=== PATIENT | male | born 1960 | race African-American/Black ===

== ENCOUNTER 2018-04-30 12:02 | Emergency (ER) | payer OTHER ==
[~2018-04-30] VITALS: Ht 185.4 cm; Wt 95.0 kg
[2018-04-30] MEDS ORDERED: HYDROCODONE/ACETAMINOPHEN 5/325MG TABLET PO STA (15:20)
[2018-04-30] MEDS ORDERED: TETRACAINE 0.5% OPHTH DROPS 4ML OP ONE (15:30)
[2018-04-30] MEDS ORDERED: FLUORESCEIN SODIUM 1MG/STRIP OP ONE (15:30)
[2018-04-30 15:57] LABS: EOSINOPHILS % 0.6 % (0.0-5.0); HEMATOCRIT. 46.1 % (42.0-52.0); LYMPHOCYTES % 27.8 % (20.0-50.0); MEAN CORPUSCULAR HEMOGLOBIN 31.8 pg (28.0-32.0); MEAN CORPUSCULAR VOLUME 91.4 fL (80.0-94.0); MEAN PLATELET VOLUME 10.3 fl (7.4-10.4); MONOCYTES % 7.3 % (2.0-8.0); NEUTROPHILS % 63.3 % (40.0-76.0); PLATELET 195 x1000/uL (130-400); RED BLOOD CELL COUNT 5.05 mill/uL (4.7-6.1); RED CELL DISTRIBUTION WIDTH 14.3 % (11.6-14.6)
[2018-04-30 16:02] LABS: CHLORIDE 102 mEq/L (98-107)
[2018-04-30 16:03] LABS: PROTHROMBIN TIME 9.6 sec (9.1-11.1)
[2018-04-30] MEDS ORDERED: VANCOMYCIN 500 MG PREMIX 100 ML IV SCH (17:30)
[2018-04-30] MEDS ORDERED: PIPERACILLIN/TAZ 3.375G PREMIX 50 ML IV ONE (17:30)
[2018-04-30 19:35] VITALS: BP 176/99
== END 2018-04-30 19:35 | disposition home or self-care (01) ==
LOC: ER 12:02
DX: H00.036 Abscess of eyelid left eye, unspecified eyelid (principal); H10.9 Unspecified conjunctivitis; E11.9 Type 2 diabetes mellitus without complications; I11.9 Hypertensive heart disease without heart failure
CPT/HCPCS: 36415; 70486; 80053; 85025; 85610; 96365; 96368; 99285; J2543; J3370

== ENCOUNTER 2021-06-15 22:50 | Inpatient (IN) | payer MEDICAID ==
[~2021-06-15] VITALS: Ht 185.4 cm; Wt 87.3 kg
[2021-06-15 23:00] VITALS: BP 140/73
[2021-06-16] MEDS ORDERED: ASPI-1497 PO (00:39)
[2021-06-16] MEDS ORDERED: HYDR-4009 PO (00:39)
[2021-06-16] MEDS ORDERED: GLIP10TA3 PO (00:39)
[2021-06-16] MEDS ORDERED: METF-414 PO (00:39)
[2021-06-16] MEDS ORDERED: AMLO10TA80 PO (00:39)
[2021-06-16] MEDS ORDERED: HYDR50TA PO (00:39)
[2021-06-16] MEDS ORDERED: CARI250T PO (00:39)
[2021-06-16] MEDS ORDERED: INFLUENZA VACCINE 05/PF 0.5 ML SYRINGE IM ONE (00:45)
[2021-06-16] MEDS ORDERED: IPRATROPIUM/ALBUTEROL 0.5-3(2.5)MG/3ML NEB HHN PRN (02:15)
[2021-06-16] MEDS ORDERED: DEXTROSE 50% WATER 50ML SYRINGE IV PRN (02:15)
[2021-06-16] MEDS ORDERED: NALOXONE HCL 0.4MG/ML VIAL IV PRN (05:30)
[2021-06-16] MEDS: BLOOD SUGAR DIAGNOSTIC STRIP TEST SCH ×4 (05:53→20:37)
[2021-06-16] MEDS: INSULIN LISPRO 100 UNITS/ML SUBCUT SCH ×4 (05:53→20:37)
[2021-06-16 07:06] LABS: BASOPHILS % 0.3 % (0.0-2.0); EOSINOPHILS % 1.2 % (0.0-5.0); HEMATOCRIT. 40.2 % (42.0-52.0); HEMOGLOBIN. 13.8 g/dL (14.0-18.0); LYMPHOCYTES % 33.6 % (20.0-50.0); MEAN CORPUSCULAR HEMOGLOBIN 31.3 pg (28.0-32.0); MEAN CORPUSCULAR VOLUME 91.4 fL (80.0-94.0); MONOCYTES % 8.6 % (2.0-8.0); NEUTROPHILS % 56.3 % (40.0-76.0); PLATELET 173 x1000/uL (130-400)
[2021-06-16 07:07] LABS: CHLORIDE 105 mEq/L (98-107)
[2021-06-16] MEDS: HYDROCHLOROTHIAZIDE 25MG TABLET PO SCH (07:59)
[2021-06-16] MEDS: ASPIRIN 81MG TABLET PO SCH (07:59)
[2021-06-16] MEDS: AMLODIPINE 10MG TABLET PO SCH (07:59)
[2021-06-16] MEDS: HYDROCODONE/ACETAMINOPHEN 10/325MG TABLET PO PRN (08:00)
[2021-06-16 08:30] VITALS: BP 126/52
[2021-06-16] MEDS: ENOXAPARIN 40MG/0.4ML SYR SUBCUT SCH (12:52)
[2021-06-16] MEDS: METFORMIN HCL 500MG TABLET PO SCH ×2 (12:53→17:25)
[2021-06-16 19:10] VITALS: BP 128/73
[2021-06-16 19:56] LABS: T4 FREE 0.97 ng/dL (0.76-1.46)
[2021-06-16] MEDS: ATORVASTATIN CALCIUM 40MG TABLET PO SCH (20:37)
[2021-06-16] MEDS: CHLORPROMAZINE HCL 25 MG TABLET PO PRN (20:37)
[2021-06-16] MEDS ORDERED: PROMETHAZINE HCL 25MG TABLET PO PRN (21:15)
[2021-06-17] MEDS: BLOOD SUGAR DIAGNOSTIC STRIP TEST SCH ×4 (06:05→20:33)
[2021-06-17 06:08] LABS: BASOPHILS % 0.5 % (0.0-2.0); EOSINOPHILS % 1.9 % (0.0-5.0); HEMATOCRIT. 39.4 % (42.0-52.0); HEMOGLOBIN. 13.2 g/dL (14.0-18.0); LYMPHOCYTES % 43.9 % (20.0-50.0); MEAN CORPUSCULAR HEMOGLOBIN 30.8 pg (28.0-32.0); MEAN CORPUSCULAR VOLUME 92.1 fL (80.0-94.0); MEAN PLATELET VOLUME 10.7 fl (7.4-10.4); MONOCYTES % 10.1 % (2.0-8.0); NEUTROPHILS % 43.6 % (40.0-76.0); PLATELET 166 x1000/uL (130-400); RED BLOOD CELL COUNT 4.28 mill/uL (4.7-6.1); RED CELL DISTRIBUTION WIDTH 12.9 % (11.6-14.6)
[2021-06-17 06:13] LABS: CHLORIDE 101 mEq/L (98-107)
[2021-06-17] MEDS: INSULIN LISPRO 100 UNITS/ML SUBCUT SCH ×4 (06:29→21:31)
[2021-06-17 06:30] LABS: PROSTRATE SPECIFIC AG TOTAL 0.33 ng/mL (0.0-4.0)
[2021-06-17 06:32] LABS: FOLIC ACID (FOLATE) SERUM 17.5 ng/mL (>5.38)
[2021-06-17 06:36] LABS: TOTAL IRON BINDING CAPACITY 346 ug/dL (250-450)
[2021-06-17 08:00] VITALS: BP 136/88
[2021-06-17] MEDS: ASPIRIN 81MG TABLET PO SCH (09:11)
[2021-06-17] MEDS: METFORMIN HCL 500MG TABLET PO SCH ×2 (09:12→17:56)
[2021-06-17] MEDS: AMLODIPINE 10MG TABLET PO SCH (09:12)
[2021-06-17] MEDS: HYDROCHLOROTHIAZIDE 25MG TABLET PO SCH (09:13)
[2021-06-17] MEDS: CLOPIDOGREL 75MG TABLET PO SCH (09:13)
[2021-06-17] MEDS: HYDROCODONE/ACETAMINOPHEN 10/325MG TABLET PO PRN (09:13)
[2021-06-17] MEDS: ENOXAPARIN 40MG/0.4ML SYR SUBCUT SCH (09:17)
[2021-06-17 20:00] VITALS: BP 124/68
[2021-06-17] MEDS: ATORVASTATIN CALCIUM 40MG TABLET PO SCH (21:24)
[2021-06-18] MEDS: BLOOD SUGAR DIAGNOSTIC STRIP TEST SCH ×4 (05:33→20:34)
[2021-06-18 05:34] VITALS: BP 107/66
[2021-06-18] MEDS: ACETAMINOPHEN 325MG TABLET PO PRN (05:34)
[2021-06-18] MEDS: INSULIN LISPRO 100 UNITS/ML SUBCUT SCH ×4 (05:38→20:35)
[2021-06-18 07:58] VITALS: BP 117/70
[2021-06-18] MEDS: AMLODIPINE 10MG TABLET PO SCH (08:18)
[2021-06-18] MEDS: HYDROCHLOROTHIAZIDE 25MG TABLET PO SCH (08:18)
[2021-06-18] MEDS: ASPIRIN 81MG TABLET PO SCH (08:18)
[2021-06-18] MEDS: CLOPIDOGREL 75MG TABLET PO SCH (08:18)
[2021-06-18] MEDS: ENOXAPARIN 40MG/0.4ML SYR SUBCUT SCH (08:18)
[2021-06-18] MEDS: METFORMIN HCL 500MG TABLET PO SCH ×2 (08:18→16:41)
[2021-06-18] MEDS: HYDROCODONE/ACETAMINOPHEN 10/325MG TABLET PO PRN (10:42)
[2021-06-18] MEDS ORDERED: LACTULOSE 20G/30ML UDC PO NR (16:00)
[2021-06-18 20:00] VITALS: BP 127/76
[2021-06-18] MEDS: ATORVASTATIN CALCIUM 40MG TABLET PO SCH (20:38)
[2021-06-19] MEDS: BLOOD SUGAR DIAGNOSTIC STRIP TEST SCH ×4 (06:02→21:31)
[2021-06-19] MEDS: INSULIN LISPRO 100 UNITS/ML SUBCUT SCH ×4 (06:03→21:30)
[2021-06-19 08:10] VITALS: BP 137/85
[2021-06-19] MEDS: ASPIRIN 81MG TABLET PO SCH (08:47)
[2021-06-19] MEDS: CLOPIDOGREL 75MG TABLET PO SCH (08:47)
[2021-06-19] MEDS: HYDROCODONE/ACETAMINOPHEN 10/325MG TABLET PO PRN (08:49)
[2021-06-19] MEDS: HYDROCHLOROTHIAZIDE 25MG TABLET PO SCH (08:50)
[2021-06-19] MEDS: METFORMIN HCL 500MG TABLET PO SCH ×2 (08:50→17:17)
[2021-06-19] MEDS: AMLODIPINE 10MG TABLET PO SCH (08:50)
[2021-06-19] MEDS: ENOXAPARIN 40MG/0.4ML SYR SUBCUT SCH (08:51)
[2021-06-19 20:00] VITALS: BP 114/73
[2021-06-19] MEDS: ATORVASTATIN CALCIUM 40MG TABLET PO SCH (21:27)
[2021-06-20] MEDS: BLOOD SUGAR DIAGNOSTIC STRIP TEST SCH ×4 (07:03→21:05)
[2021-06-20 08:00] VITALS: BP 123/74
[2021-06-20] MEDS: INSULIN LISPRO 100 UNITS/ML SUBCUT SCH ×4 (09:00→20:51)
[2021-06-20] MEDS: ASPIRIN 81MG TABLET PO SCH (09:14)
[2021-06-20] MEDS: METFORMIN HCL 500MG TABLET PO SCH ×2 (09:14→17:28)
[2021-06-20] MEDS: CLOPIDOGREL 75MG TABLET PO SCH (09:15)
[2021-06-20] MEDS: HYDROCHLOROTHIAZIDE 25MG TABLET PO SCH (09:15)
[2021-06-20] MEDS: ENOXAPARIN 40MG/0.4ML SYR SUBCUT SCH (09:16)
[2021-06-20] MEDS: AMLODIPINE 10MG TABLET PO SCH (09:16)
[2021-06-20] MEDS: HYDROCODONE/ACETAMINOPHEN 10/325MG TABLET PO PRN ×2 (09:26→20:45)
[2021-06-20] MEDS ORDERED: NALOXONE HCL 0.4MG/ML VIAL IV PRN (11:00)
[2021-06-20] MEDS: LIDOCAINE 5% PATCH TOP SCH (16:10)
[2021-06-20 20:00] VITALS: BP 144/88
[2021-06-20] MEDS: ATORVASTATIN CALCIUM 40MG TABLET PO SCH (20:39)
[2021-06-20] MEDS: DIPHENHYDRAMINE HCL/ZINC ACET 28 GM CREAM TOP SCH (21:06)
[2021-06-21] MEDS: INSULIN LISPRO 100 UNITS/ML SUBCUT SCH ×4 (06:58→20:06)
[2021-06-21] MEDS: BLOOD SUGAR DIAGNOSTIC STRIP TEST SCH ×4 (06:58→20:06)
[2021-06-21 07:50] VITALS: BP 146/86
[2021-06-21] MEDS: LIDOCAINE 5% PATCH TOP SCH (10:11)
[2021-06-21] MEDS: ENOXAPARIN 40MG/0.4ML SYR SUBCUT SCH (10:11)
[2021-06-21] MEDS: HYDROCHLOROTHIAZIDE 25MG TABLET PO SCH (10:12)
[2021-06-21] MEDS: ASPIRIN 81MG TABLET PO SCH (10:12)
[2021-06-21] MEDS: CLOPIDOGREL 75MG TABLET PO SCH (10:13)
[2021-06-21] MEDS: METFORMIN HCL 500MG TABLET PO SCH ×2 (10:13→17:23)
[2021-06-21] MEDS: AMLODIPINE 10MG TABLET PO SCH (10:13)
[2021-06-21] MEDS: DIPHENHYDRAMINE HCL/ZINC ACET 28 GM CREAM TOP SCH ×2 (10:14→17:23)
[2021-06-21 17:06] LABS: 25-HYDROXY VITAMIN D3 18 ng/mL (.)
[2021-06-21] MEDS: ACETAMINOPHEN 325MG TABLET PO PRN (17:22)
[2021-06-21 20:00] VITALS: BP 147/76
[2021-06-21] MEDS: ATORVASTATIN CALCIUM 40MG TABLET PO SCH (20:06)
[2021-06-22] MEDS: INSULIN LISPRO 100 UNITS/ML SUBCUT SCH ×4 (05:31→20:15)
[2021-06-22] MEDS: BLOOD SUGAR DIAGNOSTIC STRIP TEST SCH ×4 (05:31→20:04)
[2021-06-22 08:00] VITALS: BP 136/78
[2021-06-22] MEDS: ASPIRIN 81MG TABLET PO SCH (08:41)
[2021-06-22] MEDS: ENOXAPARIN 40MG/0.4ML SYR SUBCUT SCH (08:41)
[2021-06-22] MEDS: METFORMIN HCL 500MG TABLET PO SCH ×2 (08:41→16:31)
[2021-06-22] MEDS: AMLODIPINE 10MG TABLET PO SCH (08:43)
[2021-06-22] MEDS: HYDROCHLOROTHIAZIDE 25MG TABLET PO SCH (08:43)
[2021-06-22] MEDS: LIDOCAINE 5% PATCH TOP SCH (08:44)
[2021-06-22] MEDS: CLOPIDOGREL 75MG TABLET PO SCH (08:44)
[2021-06-22] MEDS: DIPHENHYDRAMINE HCL/ZINC ACET 28 GM CREAM TOP SCH ×2 (08:44→16:31)
[2021-06-22] MEDS: HYDROCODONE/ACETAMINOPHEN 10/325MG TABLET PO PRN (16:36)
[2021-06-22 19:55] VITALS: BP 144/69
[2021-06-22] MEDS: ATORVASTATIN CALCIUM 40MG TABLET PO SCH (20:04)
[2021-06-22] MEDS ORDERED: LACTULOSE 20G/30ML UDC PO PRN (21:00)
[2021-06-23] MEDS: BLOOD SUGAR DIAGNOSTIC STRIP TEST SCH ×4 (05:35→20:25)
[2021-06-23] MEDS: INSULIN LISPRO 100 UNITS/ML SUBCUT SCH ×4 (05:36→20:48)
[2021-06-23 08:00] VITALS: BP 115/78
[2021-06-23] MEDS: METFORMIN HCL 500MG TABLET PO SCH ×2 (08:41→16:42)
[2021-06-23] MEDS: AMLODIPINE 10MG TABLET PO SCH (08:42)
[2021-06-23] MEDS: CLOPIDOGREL 75MG TABLET PO SCH (08:42)
[2021-06-23] MEDS: HYDROCHLOROTHIAZIDE 25MG TABLET PO SCH (08:42)
[2021-06-23] MEDS: DIPHENHYDRAMINE HCL/ZINC ACET 28 GM CREAM TOP SCH ×2 (08:43→17:50)
[2021-06-23] MEDS: ENOXAPARIN 40MG/0.4ML SYR SUBCUT SCH (08:43)
[2021-06-23] MEDS: LIDOCAINE 5% PATCH TOP SCH (08:46)
[2021-06-23] MEDS: HYDROCODONE/ACETAMINOPHEN 10/325MG TABLET PO PRN (08:47)
[2021-06-23] MEDS: ASPIRIN 81MG TABLET PO SCH (10:47)
[2021-06-23] MEDS: CHLORPROMAZINE HCL 25 MG TABLET PO PRN (16:53)
[2021-06-23 20:00] VITALS: BP 139/84
[2021-06-23] MEDS: ATORVASTATIN CALCIUM 40MG TABLET PO SCH (20:25)
[2021-06-24] MEDS: BLOOD SUGAR DIAGNOSTIC STRIP TEST SCH ×4 (05:47→21:23)
[2021-06-24] MEDS: INSULIN LISPRO 100 UNITS/ML SUBCUT SCH ×4 (06:36→21:00)
[2021-06-24 08:00] VITALS: BP 115/67
[2021-06-24] MEDS: ENOXAPARIN 40MG/0.4ML SYR SUBCUT SCH (09:27)
[2021-06-24] MEDS: ASPIRIN 81MG TABLET PO SCH (09:27)
[2021-06-24] MEDS: LIDOCAINE 5% PATCH TOP SCH (09:27)
[2021-06-24] MEDS: DIPHENHYDRAMINE HCL/ZINC ACET 28 GM CREAM TOP SCH ×2 (09:27→16:58)
[2021-06-24] MEDS: HYDROCHLOROTHIAZIDE 25MG TABLET PO SCH (09:28)
[2021-06-24] MEDS: AMLODIPINE 10MG TABLET PO SCH (09:28)
[2021-06-24] MEDS: METFORMIN HCL 500MG TABLET PO SCH ×2 (09:28→16:57)
[2021-06-24] MEDS: CLOPIDOGREL 75MG TABLET PO SCH (09:28)
[2021-06-24] MEDS: HYDROCODONE/ACETAMINOPHEN 10/325MG TABLET PO PRN (17:08)
[2021-06-24 20:00] VITALS: BP 131/78
[2021-06-24] MEDS: ATORVASTATIN CALCIUM 40MG TABLET PO SCH (21:24)
[2021-06-24] MEDS: CHLORPROMAZINE HCL 25 MG TABLET PO PRN (21:28)
[2021-06-25] MEDS: BLOOD SUGAR DIAGNOSTIC STRIP TEST SCH ×4 (06:21→20:50)
[2021-06-25] MEDS: INSULIN LISPRO 100 UNITS/ML SUBCUT SCH ×4 (06:22→20:50)
[2021-06-25 06:28] LABS: BASOPHILS % 0.6 % (0.0-2.0); EOSINOPHILS % 3.1 % (0.0-5.0); HEMATOCRIT. 38.1 % (42.0-52.0); HEMOGLOBIN. 13.3 g/dL (14.0-18.0); LYMPHOCYTES % 38.9 % (20.0-50.0); MEAN CORPUSCULAR HEMOGLOBIN 31.2 pg (28.0-32.0); MEAN CORPUSCULAR VOLUME 89.2 fL (80.0-94.0); MEAN PLATELET VOLUME 10.9 fl (7.4-10.4); MONOCYTES % 6.8 % (2.0-8.0); NEUTROPHILS % 50.6 % (40.0-76.0); PLATELET 187 x1000/uL (130-400); RED BLOOD CELL COUNT 4.27 mill/uL (4.7-6.1); RED CELL DISTRIBUTION WIDTH 12.8 % (11.6-14.6)
[2021-06-25 06:49] LABS: CHLORIDE 103 mEq/L (98-107)
[2021-06-25 08:00] VITALS: BP 124/63
[2021-06-25] MEDS: ENOXAPARIN 40MG/0.4ML SYR SUBCUT SCH (08:28)
[2021-06-25] MEDS: LIDOCAINE 5% PATCH TOP SCH (08:29)
[2021-06-25] MEDS: METFORMIN HCL 500MG TABLET PO SCH ×2 (08:30→17:17)
[2021-06-25] MEDS: HYDROCHLOROTHIAZIDE 25MG TABLET PO SCH (08:30)
[2021-06-25] MEDS: AMLODIPINE 10MG TABLET PO SCH (08:30)
[2021-06-25] MEDS: CLOPIDOGREL 75MG TABLET PO SCH (08:30)
[2021-06-25] MEDS: ASPIRIN 81MG TABLET PO SCH (08:30)
[2021-06-25] MEDS: DIPHENHYDRAMINE HCL/ZINC ACET 28 GM CREAM TOP SCH ×2 (08:31→17:17)
[2021-06-25] MEDS: CHLORPROMAZINE HCL 25 MG TABLET PO PRN ×2 (13:20→20:47)
[2021-06-25 20:00] VITALS: BP 131/73
[2021-06-25] MEDS: ATORVASTATIN CALCIUM 40MG TABLET PO SCH (20:47)
[2021-06-26] MEDS: INSULIN LISPRO 100 UNITS/ML SUBCUT SCH ×3 (05:44→20:46)
[2021-06-26] MEDS: BLOOD SUGAR DIAGNOSTIC STRIP TEST SCH ×3 (05:45→20:45)
[2021-06-26 07:58] VITALS: BP 123/77
[2021-06-26] MEDS: DIPHENHYDRAMINE HCL/ZINC ACET 28 GM CREAM TOP SCH ×2 (09:00→17:00)
[2021-06-26] MEDS: ENOXAPARIN 40MG/0.4ML SYR SUBCUT SCH (09:08)
[2021-06-26] MEDS: LIDOCAINE 5% PATCH TOP SCH (09:08)
[2021-06-26] MEDS: AMLODIPINE 10MG TABLET PO SCH (09:09)
[2021-06-26] MEDS: HYDROCHLOROTHIAZIDE 25MG TABLET PO SCH (09:09)
[2021-06-26] MEDS: ASPIRIN 81MG TABLET PO SCH (09:09)
[2021-06-26] MEDS: CLOPIDOGREL 75MG TABLET PO SCH (09:09)
[2021-06-26] MEDS: METFORMIN HCL 500MG TABLET PO SCH ×2 (09:10→17:00)
[2021-06-26] MEDS: BISACODYL 5MG TABLET PO PRN (09:10)
[2021-06-26] MEDS: CHLORPROMAZINE HCL 25 MG TABLET PO PRN (17:42)
[2021-06-26 20:00] VITALS: BP 126/82
[2021-06-26] MEDS: ATORVASTATIN CALCIUM 40MG TABLET PO SCH (20:42)
[2021-06-26] MEDS: HYDROCODONE/ACETAMINOPHEN 10/325MG TABLET PO PRN (21:04)
[2021-06-27] MEDS: BLOOD SUGAR DIAGNOSTIC STRIP TEST SCH ×4 (05:47→21:00)
[2021-06-27] MEDS: INSULIN LISPRO 100 UNITS/ML SUBCUT SCH ×4 (05:49→21:00)
[2021-06-27 08:00] VITALS: BP 139/81
[2021-06-27] MEDS: ASPIRIN 81MG TABLET PO SCH (08:07)
[2021-06-27] MEDS: BISACODYL 5MG TABLET PO PRN (08:07)
[2021-06-27] MEDS: HYDROCHLOROTHIAZIDE 25MG TABLET PO SCH (08:07)
[2021-06-27] MEDS: METFORMIN HCL 500MG TABLET PO SCH ×2 (08:08→18:22)
[2021-06-27] MEDS: HYDROCODONE/ACETAMINOPHEN 10/325MG TABLET PO PRN ×2 (08:08→18:20)
[2021-06-27] MEDS: AMLODIPINE 10MG TABLET PO SCH (08:08)
[2021-06-27] MEDS: CLOPIDOGREL 75MG TABLET PO SCH (08:08)
[2021-06-27] MEDS: ENOXAPARIN 40MG/0.4ML SYR SUBCUT SCH (08:09)
[2021-06-27] MEDS: DIPHENHYDRAMINE HCL/ZINC ACET 28 GM CREAM TOP SCH ×2 (09:00→17:00)
[2021-06-27] MEDS: LIDOCAINE 5% PATCH TOP SCH (18:20)
[2021-06-27 20:00] VITALS: BP 138/67
[2021-06-27] MEDS: ATORVASTATIN CALCIUM 40MG TABLET PO SCH (21:06)
[2021-06-27] MEDS: CHLORPROMAZINE HCL 25 MG TABLET PO PRN (21:38)
[2021-06-28] MEDS: BLOOD SUGAR DIAGNOSTIC STRIP TEST SCH ×4 (06:30→20:42)
[2021-06-28] MEDS: INSULIN LISPRO 100 UNITS/ML SUBCUT SCH ×4 (06:33→20:42)
[2021-06-28 08:00] VITALS: BP 125/79
[2021-06-28] MEDS: DIPHENHYDRAMINE HCL/ZINC ACET 28 GM CREAM TOP SCH ×2 (09:00→16:31)
[2021-06-28] MEDS: CLOPIDOGREL 75MG TABLET PO SCH (09:06)
[2021-06-28] MEDS: HYDROCHLOROTHIAZIDE 25MG TABLET PO SCH (09:06)
[2021-06-28] MEDS: METFORMIN HCL 500MG TABLET PO SCH ×2 (09:06→16:40)
[2021-06-28] MEDS: ENOXAPARIN 40MG/0.4ML SYR SUBCUT SCH (09:06)
[2021-06-28] MEDS: AMLODIPINE 10MG TABLET PO SCH (09:06)
[2021-06-28] MEDS: ASPIRIN 81MG TABLET PO SCH (09:06)
[2021-06-28] MEDS: LIDOCAINE 5% PATCH TOP SCH (09:07)
[2021-06-28] MEDS: HYDROCODONE/ACETAMINOPHEN 10/325MG TABLET PO PRN ×2 (09:14→16:43)
[2021-06-28] MEDS ORDERED: NALOXONE HCL 0.4MG/ML VIAL IV PRN (15:30)
[2021-06-28] MEDS: ERGOCALCIFEROL 50000UNITS CAPSULE PO SCH (18:03)
[2021-06-28 20:00] VITALS: BP 140/85
[2021-06-28] MEDS: ATORVASTATIN CALCIUM 40MG TABLET PO SCH (20:38)
[2021-06-28] MEDS: CHLORPROMAZINE HCL 25 MG TABLET PO PRN (20:47)
[2021-06-29] MEDS: BLOOD SUGAR DIAGNOSTIC STRIP TEST SCH ×4 (06:20→20:22)
[2021-06-29] MEDS: INSULIN LISPRO 100 UNITS/ML SUBCUT SCH ×4 (06:21→20:32)
[2021-06-29 07:09] LABS: BASOPHILS % 0.6 % (0.0-2.0); EOSINOPHILS % 3.8 % (0.0-5.0); HEMATOCRIT. 37.9 % (42.0-52.0); HEMOGLOBIN. 13.1 g/dL (14.0-18.0); LYMPHOCYTES % 27.9 % (20.0-50.0); MEAN CORPUSCULAR HEMOGLOBIN 30.6 pg (28.0-32.0); MEAN CORPUSCULAR VOLUME 88.7 fL (80.0-94.0); MEAN PLATELET VOLUME 10.7 fl (7.4-10.4); MONOCYTES % 7.4 % (2.0-8.0); NEUTROPHILS % 60.3 % (40.0-76.0); PLATELET 185 x1000/uL (130-400); RED BLOOD CELL COUNT 4.27 mill/uL (4.7-6.1); RED CELL DISTRIBUTION WIDTH 12.5 % (11.6-14.6)
[2021-06-29 08:00] VITALS: BP 115/67
[2021-06-29 08:01] LABS: CHLORIDE 100 mEq/L (98-107)
[2021-06-29] MEDS: CLOPIDOGREL 75MG TABLET PO SCH (09:30)
[2021-06-29] MEDS: ASPIRIN 81MG TABLET PO SCH (09:30)
[2021-06-29] MEDS: METFORMIN HCL 500MG TABLET PO SCH ×2 (09:30→16:49)
[2021-06-29] MEDS: HYDROCHLOROTHIAZIDE 25MG TABLET PO SCH (09:30)
[2021-06-29] MEDS: DIPHENHYDRAMINE HCL/ZINC ACET 28 GM CREAM TOP SCH ×2 (09:31→16:46)
[2021-06-29] MEDS: LIDOCAINE 5% PATCH TOP SCH (09:31)
[2021-06-29] MEDS: AMLODIPINE 10MG TABLET PO SCH (09:31)
[2021-06-29] MEDS: ENOXAPARIN 40MG/0.4ML SYR SUBCUT SCH (09:32)
[2021-06-29] MEDS ORDERED: POTASSIUM CHLORIDE 20MEQ TABLET SR PO NR (11:30)
[2021-06-29 20:00] VITALS: BP 122/76
[2021-06-29] MEDS: ATORVASTATIN CALCIUM 40MG TABLET PO SCH (20:22)
[2021-06-29] MEDS: HYDROCODONE/ACETAMINOPHEN 10/325MG TABLET PO PRN (20:28)
[2021-06-30] MEDS: BLOOD SUGAR DIAGNOSTIC STRIP TEST SCH ×4 (05:36→21:05)
[2021-06-30] MEDS: INSULIN LISPRO 100 UNITS/ML SUBCUT SCH ×4 (05:36→21:00)
[2021-06-30 06:55] LABS: CHLORIDE 99 mEq/L (98-107)
[2021-06-30 08:00] VITALS: BP 122/74
[2021-06-30] MEDS: DIPHENHYDRAMINE HCL/ZINC ACET 28 GM CREAM TOP SCH ×2 (09:00→18:12)
[2021-06-30] MEDS: METFORMIN HCL 500MG TABLET PO SCH ×2 (09:12→18:12)
[2021-06-30] MEDS: ASPIRIN 81MG TABLET PO SCH (09:12)
[2021-06-30] MEDS: HYDROCHLOROTHIAZIDE 25MG TABLET PO SCH (09:12)
[2021-06-30] MEDS: AMLODIPINE 10MG TABLET PO SCH (09:13)
[2021-06-30] MEDS: ENOXAPARIN 40MG/0.4ML SYR SUBCUT SCH (09:14)
[2021-06-30] MEDS: LIDOCAINE 5% PATCH TOP SCH (09:15)
[2021-06-30] MEDS: BISACODYL 5MG TABLET PO PRN (09:15)
[2021-06-30] MEDS: HYDROCODONE/ACETAMINOPHEN 10/325MG TABLET PO PRN (09:16)
[2021-06-30] MEDS: CHLORPROMAZINE HCL 25 MG TABLET PO PRN (09:16)
[2021-06-30] MEDS: CLOPIDOGREL 75MG TABLET PO SCH (09:17)
[2021-06-30 20:00] VITALS: BP 122/87
[2021-06-30] MEDS: ATORVASTATIN CALCIUM 40MG TABLET PO SCH (21:05)
[2021-07-01] MEDS: BLOOD SUGAR DIAGNOSTIC STRIP TEST SCH ×4 (05:55→20:29)
[2021-07-01] MEDS: BISACODYL 5MG TABLET PO PRN (05:56)
[2021-07-01] MEDS: INSULIN LISPRO 100 UNITS/ML SUBCUT SCH ×4 (05:56→20:28)
[2021-07-01] MEDS: HYDROCODONE/ACETAMINOPHEN 10/325MG TABLET PO PRN ×2 (06:41→20:28)
[2021-07-01 08:00] VITALS: BP 122/74
[2021-07-01] MEDS: CLOPIDOGREL 75MG TABLET PO SCH (08:50)
[2021-07-01] MEDS: LIDOCAINE 5% PATCH TOP SCH (08:50)
[2021-07-01] MEDS: HYDROCHLOROTHIAZIDE 25MG TABLET PO SCH (08:51)
[2021-07-01] MEDS: DIPHENHYDRAMINE HCL/ZINC ACET 28 GM CREAM TOP SCH ×2 (08:51→17:11)
[2021-07-01] MEDS: ENOXAPARIN 40MG/0.4ML SYR SUBCUT SCH (08:51)
[2021-07-01] MEDS: AMLODIPINE 10MG TABLET PO SCH (08:51)
[2021-07-01] MEDS: METFORMIN HCL 500MG TABLET PO SCH ×2 (08:51→17:11)
[2021-07-01] MEDS: ASPIRIN 81MG TABLET PO SCH (08:51)
[2021-07-01 20:00] VITALS: BP 141/79
[2021-07-01] MEDS: ATORVASTATIN CALCIUM 40MG TABLET PO SCH (20:18)
[2021-07-02] MEDS: INSULIN LISPRO 100 UNITS/ML SUBCUT SCH ×4 (05:57→21:00)
[2021-07-02] MEDS: BLOOD SUGAR DIAGNOSTIC STRIP TEST SCH ×4 (05:57→21:33)
[2021-07-02 07:48] LABS: BASOPHILS % 0.4 % (0.0-2.0); EOSINOPHILS % 4.6 % (0.0-5.0); HEMATOCRIT. 37.2 % (42.0-52.0); HEMOGLOBIN. 12.6 g/dL (14.0-18.0); LYMPHOCYTES % 40.8 % (20.0-50.0); MEAN CORPUSCULAR HEMOGLOBIN 30.5 pg (28.0-32.0); MEAN CORPUSCULAR VOLUME 90.2 fL (80.0-94.0); MEAN PLATELET VOLUME 11.1 fl (7.4-10.4); MONOCYTES % 7.8 % (2.0-8.0); NEUTROPHILS % 46.4 % (40.0-76.0); PLATELET 182 x1000/uL (130-400); RED BLOOD CELL COUNT 4.12 mill/uL (4.7-6.1); RED CELL DISTRIBUTION WIDTH 12.7 % (11.6-14.6)
[2021-07-02 08:00] VITALS: BP 131/74
[2021-07-02 08:17] LABS: CHLORIDE 100 mEq/L (98-107)
[2021-07-02] MEDS: DIPHENHYDRAMINE HCL/ZINC ACET 28 GM CREAM TOP SCH ×3 (09:00→17:00)
[2021-07-02] MEDS: ASPIRIN 81MG TABLET PO SCH (10:08)
[2021-07-02] MEDS: CLOPIDOGREL 75MG TABLET PO SCH (10:09)
[2021-07-02] MEDS: ENOXAPARIN 40MG/0.4ML SYR SUBCUT SCH (10:09)
[2021-07-02] MEDS: METFORMIN HCL 500MG TABLET PO SCH ×2 (10:09→17:00)
[2021-07-02] MEDS: HYDROCHLOROTHIAZIDE 25MG TABLET PO SCH (10:10)
[2021-07-02] MEDS: AMLODIPINE 10MG TABLET PO SCH (10:10)
[2021-07-02] MEDS: LIDOCAINE 5% PATCH TOP SCH (10:11)
[2021-07-02] MEDS: CHLORPROMAZINE HCL 25 MG TABLET PO PRN ×2 (11:23→18:03)
[2021-07-02] MEDS ORDERED: POTASSIUM CHLORIDE 20MEQ TABLET SR PO SCH (14:30)
[2021-07-02 20:00] VITALS: BP 113/82
[2021-07-02] MEDS: ATORVASTATIN CALCIUM 40MG TABLET PO SCH (21:33)
[2021-07-03] MEDS: BLOOD SUGAR DIAGNOSTIC STRIP TEST SCH ×4 (06:39→20:09)
[2021-07-03 07:31] LABS: CHLORIDE 101 mEq/L (98-107)
[2021-07-03 07:52] VITALS: BP 123/78
[2021-07-03] MEDS: INSULIN LISPRO 100 UNITS/ML SUBCUT SCH ×4 (08:35→20:16)
[2021-07-03] MEDS: CLOPIDOGREL 75MG TABLET PO SCH (10:17)
[2021-07-03] MEDS: METFORMIN HCL 500MG TABLET PO SCH ×2 (10:17→17:13)
[2021-07-03] MEDS: ASPIRIN 81MG TABLET PO SCH (10:17)
[2021-07-03] MEDS: HYDROCHLOROTHIAZIDE 25MG TABLET PO SCH (10:17)
[2021-07-03] MEDS: LIDOCAINE 5% PATCH TOP SCH (10:18)
[2021-07-03] MEDS: ENOXAPARIN 40MG/0.4ML SYR SUBCUT SCH (10:18)
[2021-07-03] MEDS: AMLODIPINE 10MG TABLET PO SCH (10:19)
[2021-07-03] MEDS: CHLORPROMAZINE HCL 25 MG TABLET PO PRN (10:27)
[2021-07-03] MEDS: DIPHENHYDRAMINE HCL/ZINC ACET 28 GM CREAM TOP SCH ×2 (10:27→17:00)
[2021-07-03 20:00] VITALS: BP 140/75
[2021-07-03] MEDS: ATORVASTATIN CALCIUM 40MG TABLET PO SCH (20:09)
[2021-07-04] MEDS: INSULIN LISPRO 100 UNITS/ML SUBCUT SCH ×4 (06:55→21:00)
[2021-07-04] MEDS: BLOOD SUGAR DIAGNOSTIC STRIP TEST SCH ×4 (07:03→21:14)
[2021-07-04 08:00] VITALS: BP 128/70
[2021-07-04] MEDS: ASPIRIN 81MG TABLET PO SCH (09:29)
[2021-07-04] MEDS: ENOXAPARIN 40MG/0.4ML SYR SUBCUT SCH (09:29)
[2021-07-04] MEDS: METFORMIN HCL 500MG TABLET PO SCH ×2 (09:30→17:26)
[2021-07-04] MEDS: CLOPIDOGREL 75MG TABLET PO SCH (09:30)
[2021-07-04] MEDS: LIDOCAINE 5% PATCH TOP SCH (09:30)
[2021-07-04] MEDS: AMLODIPINE 10MG TABLET PO SCH (09:31)
[2021-07-04] MEDS: HYDROCHLOROTHIAZIDE 25MG TABLET PO SCH (09:31)
[2021-07-04] MEDS: DIPHENHYDRAMINE HCL/ZINC ACET 28 GM CREAM TOP SCH ×2 (17:00→17:26)
[2021-07-04] MEDS: HYDROCODONE/ACETAMINOPHEN 10/325MG TABLET PO PRN (17:27)
[2021-07-04 20:00] VITALS: BP 133/83
[2021-07-04] MEDS: ATORVASTATIN CALCIUM 40MG TABLET PO SCH (21:13)
[2021-07-05] MEDS: BLOOD SUGAR DIAGNOSTIC STRIP TEST SCH ×4 (06:48→21:01)
[2021-07-05 08:00] VITALS: BP 117/77
[2021-07-05] MEDS: INSULIN LISPRO 100 UNITS/ML SUBCUT SCH ×4 (09:00→21:07)
[2021-07-05] MEDS: AMLODIPINE 10MG TABLET PO SCH (09:58)
[2021-07-05] MEDS: METFORMIN HCL 500MG TABLET PO SCH ×2 (09:58→17:22)
[2021-07-05] MEDS: CLOPIDOGREL 75MG TABLET PO SCH (09:59)
[2021-07-05] MEDS: HYDROCHLOROTHIAZIDE 25MG TABLET PO SCH (09:59)
[2021-07-05] MEDS: ASPIRIN 81MG TABLET PO SCH (09:59)
[2021-07-05] MEDS: LIDOCAINE 5% PATCH TOP SCH (09:59)
[2021-07-05] MEDS: ENOXAPARIN 40MG/0.4ML SYR SUBCUT SCH (09:59)
[2021-07-05] MEDS: DIPHENHYDRAMINE HCL/ZINC ACET 28 GM CREAM TOP SCH ×2 (10:00→17:00)
[2021-07-05] MEDS: ERGOCALCIFEROL 50000UNITS CAPSULE PO SCH (17:22)
[2021-07-05 20:00] VITALS: BP 137/79
[2021-07-05] MEDS: ATORVASTATIN CALCIUM 40MG TABLET PO SCH (21:01)
[2021-07-06] MEDS: BLOOD SUGAR DIAGNOSTIC STRIP TEST SCH ×4 (05:35→20:26)
[2021-07-06] MEDS: INSULIN LISPRO 100 UNITS/ML SUBCUT SCH ×4 (05:35→20:27)
[2021-07-06 07:30] LABS: BASOPHILS % 0.9 % (0.0-2.0); EOSINOPHILS % 4.2 % (0.0-5.0); HEMATOCRIT. 39.3 % (42.0-52.0); HEMOGLOBIN. 13.2 g/dL (14.0-18.0); LYMPHOCYTES % 41.1 % (20.0-50.0); MEAN CORPUSCULAR HEMOGLOBIN 30.2 pg (28.0-32.0); MEAN CORPUSCULAR VOLUME 90.1 fL (80.0-94.0); MEAN PLATELET VOLUME 11.2 fl (7.4-10.4); NEUTROPHILS % 46.8 % (40.0-76.0); PLATELET 206 x1000/uL (130-400); RED BLOOD CELL COUNT 4.36 mill/uL (4.7-6.1); RED CELL DISTRIBUTION WIDTH 12.4 % (11.6-14.6)
[2021-07-06 07:44] LABS: CHLORIDE 103 mEq/L (98-107)
[2021-07-06 08:00] VITALS: BP 125/78
[2021-07-06] MEDS: METFORMIN HCL 500MG TABLET PO SCH ×2 (10:14→17:32)
[2021-07-06] MEDS: ASPIRIN 81MG TABLET PO SCH (10:14)
[2021-07-06] MEDS: CLOPIDOGREL 75MG TABLET PO SCH (10:15)
[2021-07-06] MEDS: HYDROCHLOROTHIAZIDE 25MG TABLET PO SCH (10:15)
[2021-07-06] MEDS: AMLODIPINE 10MG TABLET PO SCH (10:15)
[2021-07-06] MEDS: DIPHENHYDRAMINE HCL/ZINC ACET 28 GM CREAM TOP SCH ×2 (10:16→17:33)
[2021-07-06] MEDS: ENOXAPARIN 40MG/0.4ML SYR SUBCUT SCH (10:16)
[2021-07-06] MEDS: LIDOCAINE 5% PATCH TOP SCH (10:17)
[2021-07-06] MEDS: HYDROCODONE/ACETAMINOPHEN 10/325MG TABLET PO PRN (10:55)
[2021-07-06] MEDS ORDERED: POTASSIUM CHLORIDE 20MEQ TABLET SR PO NR (12:00)
[2021-07-06] MEDS: CHLORPROMAZINE HCL 25 MG TABLET PO PRN (17:43)
[2021-07-06 20:00] VITALS: BP 105/68
[2021-07-06] MEDS: ATORVASTATIN CALCIUM 40MG TABLET PO SCH (20:26)
[2021-07-07] MEDS: HYDROCODONE/ACETAMINOPHEN 10/325MG TABLET PO PRN (02:55)
[2021-07-07] MEDS ORDERED: NALOXONE HCL 0.4MG/ML VIAL IV PRN (03:00)
[2021-07-07] MEDS: BLOOD SUGAR DIAGNOSTIC STRIP TEST SCH ×4 (06:25→20:40)
[2021-07-07] MEDS: INSULIN LISPRO 100 UNITS/ML SUBCUT SCH ×4 (06:26→20:40)
[2021-07-07 07:27] LABS: CHLORIDE 102 mEq/L (98-107)
[2021-07-07 08:30] VITALS: BP 122/71
[2021-07-07] MEDS: METFORMIN HCL 500MG TABLET PO SCH ×2 (09:00→17:38)
[2021-07-07] MEDS: AMLODIPINE 10MG TABLET PO SCH (10:40)
[2021-07-07] MEDS: CHLORPROMAZINE HCL 25 MG TABLET PO PRN (10:40)
[2021-07-07] MEDS: ASPIRIN 81MG TABLET PO SCH (10:40)
[2021-07-07] MEDS: CLOPIDOGREL 75MG TABLET PO SCH (10:40)
[2021-07-07] MEDS: HYDROCHLOROTHIAZIDE 25MG TABLET PO SCH (10:40)
[2021-07-07] MEDS: ENOXAPARIN 40MG/0.4ML SYR SUBCUT SCH (10:41)
[2021-07-07] MEDS: LIDOCAINE 5% PATCH TOP SCH (10:42)
[2021-07-07] MEDS: DIPHENHYDRAMINE HCL/ZINC ACET 28 GM CREAM TOP SCH ×2 (17:00→17:38)
[2021-07-07 20:00] VITALS: BP 118/72
[2021-07-07] MEDS: ATORVASTATIN CALCIUM 40MG TABLET PO SCH (20:44)
[2021-07-08] MEDS: HYDROCODONE/ACETAMINOPHEN 10/325MG TABLET PO PRN ×2 (02:30→10:32)
[2021-07-08] MEDS: BLOOD SUGAR DIAGNOSTIC STRIP TEST SCH ×2 (06:30→12:12)
[2021-07-08 08:00] VITALS: BP 126/80
[2021-07-08] MEDS: INSULIN LISPRO 100 UNITS/ML SUBCUT SCH ×2 (08:06→12:12)
[2021-07-08] MEDS: HYDROCHLOROTHIAZIDE 25MG TABLET PO SCH (08:28)
[2021-07-08] MEDS: METFORMIN HCL 500MG TABLET PO SCH ×2 (08:28→17:10)
[2021-07-08] MEDS: ASPIRIN 81MG TABLET PO SCH (08:28)
[2021-07-08] MEDS: CLOPIDOGREL 75MG TABLET PO SCH (08:29)
[2021-07-08] MEDS: ENOXAPARIN 40MG/0.4ML SYR SUBCUT SCH (08:29)
[2021-07-08] MEDS: AMLODIPINE 10MG TABLET PO SCH (08:29)
[2021-07-08] MEDS: DIPHENHYDRAMINE HCL/ZINC ACET 28 GM CREAM TOP SCH ×2 (08:30→17:11)
[2021-07-08] MEDS: LIDOCAINE 5% PATCH TOP SCH (08:39)
[2021-07-08 20:00] VITALS: BP 108/70
[2021-07-08] MEDS: ATORVASTATIN CALCIUM 40MG TABLET PO SCH (21:32)
[2021-07-09 08:00] VITALS: BP 138/96
[2021-07-09] MEDS: AMLODIPINE 10MG TABLET PO SCH (08:22)
[2021-07-09] MEDS: ENOXAPARIN 40MG/0.4ML SYR SUBCUT SCH (08:22)
[2021-07-09] MEDS: ASPIRIN 81MG TABLET PO SCH (08:22)
[2021-07-09] MEDS: LIDOCAINE 5% PATCH TOP SCH (08:22)
[2021-07-09] MEDS: HYDROCHLOROTHIAZIDE 25MG TABLET PO SCH (08:22)
[2021-07-09] MEDS: METFORMIN HCL 500MG TABLET PO SCH ×2 (08:23→17:27)
[2021-07-09] MEDS: CLOPIDOGREL 75MG TABLET PO SCH (08:23)
[2021-07-09] MEDS: DIPHENHYDRAMINE HCL/ZINC ACET 28 GM CREAM TOP SCH ×2 (08:24→17:00)
[2021-07-09 20:00] VITALS: BP 129/81
[2021-07-09] MEDS: ATORVASTATIN CALCIUM 40MG TABLET PO SCH (21:06)
[2021-07-10 08:00] VITALS: BP 134/74
[2021-07-10] MEDS: ASPIRIN 81MG TABLET PO SCH (08:31)
[2021-07-10] MEDS: METFORMIN HCL 500MG TABLET PO SCH ×2 (08:32→16:22)
[2021-07-10] MEDS: HYDROCHLOROTHIAZIDE 25MG TABLET PO SCH (08:32)
[2021-07-10] MEDS: AMLODIPINE 10MG TABLET PO SCH (08:33)
[2021-07-10] MEDS: ENOXAPARIN 40MG/0.4ML SYR SUBCUT SCH (08:33)
[2021-07-10] MEDS: CLOPIDOGREL 75MG TABLET PO SCH (08:33)
[2021-07-10] MEDS: LIDOCAINE 5% PATCH TOP SCH (08:34)
[2021-07-10] MEDS: HYDROCODONE/ACETAMINOPHEN 10/325MG TABLET PO PRN ×2 (08:35→12:16)
[2021-07-10] MEDS: DIPHENHYDRAMINE HCL/ZINC ACET 28 GM CREAM TOP SCH ×2 (12:03→19:02)
[2021-07-10 20:00] VITALS: BP_SYST 121
[2021-07-10] MEDS: ATORVASTATIN CALCIUM 40MG TABLET PO SCH (22:13)
[2021-07-11 07:54] LABS: BASOPHILS % 0.8 % (0.0-2.0); EOSINOPHILS % 4.8 % (0.0-5.0); HEMATOCRIT. 36.6 % (42.0-52.0); HEMOGLOBIN. 12.6 g/dL (14.0-18.0); LYMPHOCYTES % 44.5 % (20.0-50.0); MEAN CORPUSCULAR HEMOGLOBIN 30.9 pg (28.0-32.0); MEAN CORPUSCULAR VOLUME 89.8 fL (80.0-94.0); MEAN PLATELET VOLUME 10.9 fl (7.4-10.4); MONOCYTES % 6.2 % (2.0-8.0); NEUTROPHILS % 43.7 % (40.0-76.0); PLATELET 193 x1000/uL (130-400); RED BLOOD CELL COUNT 4.08 mill/uL (4.7-6.1); RED CELL DISTRIBUTION WIDTH 12.4 % (11.6-14.6)
[2021-07-11 07:56] LABS: CHLORIDE 104 mEq/L (98-107)
[2021-07-11 08:05] VITALS: BP 129/86
[2021-07-11] MEDS: ASPIRIN 81MG TABLET PO SCH (08:56)
[2021-07-11] MEDS: CLOPIDOGREL 75MG TABLET PO SCH (08:57)
[2021-07-11] MEDS: AMLODIPINE 10MG TABLET PO SCH (08:57)
[2021-07-11] MEDS: HYDROCHLOROTHIAZIDE 25MG TABLET PO SCH (08:57)
[2021-07-11] MEDS: METFORMIN HCL 500MG TABLET PO SCH ×2 (08:57→16:44)
[2021-07-11] MEDS: ENOXAPARIN 40MG/0.4ML SYR SUBCUT SCH (08:58)
[2021-07-11] MEDS: LIDOCAINE 5% PATCH TOP SCH (09:00)
[2021-07-11] MEDS: DIPHENHYDRAMINE HCL/ZINC ACET 28 GM CREAM TOP SCH ×2 (09:00→16:44)
[2021-07-11 20:00] VITALS: BP 135/65
[2021-07-11] MEDS: ATORVASTATIN CALCIUM 40MG TABLET PO SCH (20:55)
[2021-07-11] MEDS: HYDROCODONE/ACETAMINOPHEN 10/325MG TABLET PO PRN (21:21)
[2021-07-12] MEDS ORDERED: NALOXONE HCL 0.4MG/ML VIAL IV PRN (07:15)
[2021-07-12 08:00] VITALS: BP 105/63
[2021-07-12] MEDS: AMLODIPINE 10MG TABLET PO SCH (08:55)
[2021-07-12] MEDS: LIDOCAINE 5% PATCH TOP SCH (08:56)
[2021-07-12] MEDS: HYDROCHLOROTHIAZIDE 25MG TABLET PO SCH (08:57)
[2021-07-12] MEDS: ASPIRIN 81MG TABLET PO SCH (08:57)
[2021-07-12] MEDS: CLOPIDOGREL 75MG TABLET PO SCH (08:58)
[2021-07-12] MEDS: METFORMIN HCL 500MG TABLET PO SCH ×2 (08:58→16:34)
[2021-07-12] MEDS: HYDROCODONE/ACETAMINOPHEN 10/325MG TABLET PO PRN (08:58)
[2021-07-12] MEDS: DIPHENHYDRAMINE HCL/ZINC ACET 28 GM CREAM TOP SCH ×2 (08:59→16:17)
[2021-07-12] MEDS: ENOXAPARIN 40MG/0.4ML SYR SUBCUT SCH (08:59)
[2021-07-12] MEDS: ERGOCALCIFEROL 50000UNITS CAPSULE PO SCH (16:34)
[2021-07-12 20:00] VITALS: BP 118/73
[2021-07-12] MEDS: ATORVASTATIN CALCIUM 40MG TABLET PO SCH (20:22)
[2021-07-13 08:00] VITALS: BP 112/60
[2021-07-13] MEDS: ASPIRIN 81MG TABLET PO SCH (08:38)
[2021-07-13] MEDS: HYDROCHLOROTHIAZIDE 25MG TABLET PO SCH (08:39)
[2021-07-13] MEDS: METFORMIN HCL 500MG TABLET PO SCH ×2 (08:39→17:00)
[2021-07-13] MEDS: AMLODIPINE 10MG TABLET PO SCH (08:39)
[2021-07-13] MEDS: CLOPIDOGREL 75MG TABLET PO SCH (08:39)
[2021-07-13] MEDS: DIPHENHYDRAMINE HCL/ZINC ACET 28 GM CREAM TOP SCH ×2 (08:40→16:45)
[2021-07-13] MEDS: ENOXAPARIN 40MG/0.4ML SYR SUBCUT SCH (08:40)
[2021-07-13] MEDS: LIDOCAINE 5% PATCH TOP SCH (08:40)
[2021-07-13] MEDS: HYDROCODONE/ACETAMINOPHEN 10/325MG TABLET PO PRN ×2 (08:42→17:03)
[2021-07-13] MEDS ORDERED: LIP40 PO (12:01)
[2021-07-13] MEDS ORDERED: HYDR25TA PO (12:01)
[2021-07-13] MEDS ORDERED: METF-416 MT (12:01)
[2021-07-13] MEDS ORDERED: CLOP75TA15 PO (12:01)
[2021-07-13 20:00] VITALS: BP 139/81
[2021-07-13] MEDS: ATORVASTATIN CALCIUM 40MG TABLET PO SCH (20:21)
[2021-07-14] MEDS: HYDROCODONE/ACETAMINOPHEN 10/325MG TABLET PO PRN (05:59)
[2021-07-14 08:00] VITALS: BP 138/75
[2021-07-14] MEDS: DIPHENHYDRAMINE HCL/ZINC ACET 28 GM CREAM TOP SCH (09:00)
[2021-07-14] MEDS: ASPIRIN 81MG TABLET PO SCH (09:50)
[2021-07-14] MEDS: HYDROCHLOROTHIAZIDE 25MG TABLET PO SCH (09:51)
[2021-07-14] MEDS: METFORMIN HCL 500MG TABLET PO SCH (09:51)
[2021-07-14] MEDS: CLOPIDOGREL 75MG TABLET PO SCH (09:51)
[2021-07-14] MEDS: ENOXAPARIN 40MG/0.4ML SYR SUBCUT SCH (09:52)
[2021-07-14] MEDS: AMLODIPINE 10MG TABLET PO SCH (09:52)
[2021-07-14] MEDS: LIDOCAINE 5% PATCH TOP SCH (09:54)
[2021-07-14 12:24] VITALS: BP 140/66
== END 2021-07-14 12:11 | disposition home health service (06) | DRG 58 ==
PROVIDERS: ADMIT Physical Medicine & Rehabilitation Spinal Cord Injury Medicine; ATTEND Internal Medicine Nephrology
PROC: 0HBRXZZ Excision of Toe Nail, External Approach (ICD-10-PCS; principal; 2021-06-20)
DX: I69.351 Hemiplegia and hemiparesis following cerebral infarction affecting right dominant side (principal); I63.9 Cerebral infarction, unspecified; R47.01 Aphasia; B35.1 Tinea unguium; D64.9 Anemia, unspecified; E11.65 Type 2 diabetes mellitus with hyperglycemia; E78.00 Pure hypercholesterolemia, unspecified; E78.5 Hyperlipidemia, unspecified; F10.20 Alcohol dependence, uncomplicated; F14.10 Cocaine abuse, uncomplicated; I10 Essential (primary) hypertension; I25.10 Atherosclerotic heart disease of native coronary artery without angina pectoris; L60.0 Ingrowing nail; R13.10 Dysphagia, unspecified; R29.810 Facial weakness; Z82.49 Family history of ischemic heart disease and other diseases of the circulatory system; Z83.3 Family history of diabetes mellitus; Z91.14 Patient's other noncompliance with medication regimen; Z91.19 Patient's noncompliance with other medical treatment and regimen; Z95.5 Presence of coronary angioplasty implant and graft; R47.1 Dysarthria and anarthria; R74.01 Elevation of levels of liver transaminase levels; M75.41 Impingement syndrome of right shoulder; E55.9 Vitamin D deficiency, unspecified; E87.6 Hypokalemia
CPT/HCPCS: 36415; 70544; 70551; 70553; 80048; 80053; 80061; 82306; 82607; 82728; 82746; 82962; 83036; 83540; 83550; 84134; 84153; 84439; 84443; 84481; 85025; 92523; 92610; 93306; 93880; 93970; 97110; 97112; 97116; 97150; 97162; 97166; 97530; 97535; A4565; J1650; J1815; Q0161; G0103

== ENCOUNTER 2024-10-08 10:42 | Emergency (ER) | payer MEDICARE, MEDICAID ==
[~2024-10-08] VITALS: Ht 185.4 cm; Wt 95.0 kg
[~2024-10-08 10:42] MED LIST: AMLO10TA80 PO; ASPI-1497 PO; CARI250T PO; CLOP75TA15 PO; GLIP10TA3 PO; HYDR-4009 PO; HYDR25TA PO; HYDR50TA PO; LIP40 PO; METF-414 PO; METF-416 MT
[2024-10-08 10:48] VITALS: BP 114/66; PULSE 71; RESP 18; TEMP 36.9; O2SAT 96
[2024-10-08 10:49] VITALS: O2SAT 98
== END 2024-10-08 11:51 | disposition home or self-care (01) ==
LOC: ER 10:42
DX: Z00.00 Encounter for general adult medical examination without abnormal findings (principal); I10 Essential (primary) hypertension; E11.9 Type 2 diabetes mellitus without complications; I51.9 Heart disease, unspecified; Z79.82 Long term (current) use of aspirin; Z79.899 Other long term (current) drug therapy; Z86.73 Personal history of transient ischemic attack (TIA), and cerebral infarction without residual deficits
CPT/HCPCS: 99281

== ENCOUNTER 2025-02-08 13:22 | Emergency (ER) | payer OTHER ==
[~2025-02-08] VITALS: Ht 185.4 cm; Wt 91.6 kg
[2025-02-08 13:23] VITALS: O2SAT 98
[2025-02-08 14:34] LABS: BASOPHILS % 0.6 % (0.0-2.0); EOSINOPHILS % 2.4 % (0.0-5.0); HEMATOCRIT. 47.3 % (42.0-52.0); HEMOGLOBIN. 15.8 g/dL (14.0-18.0); LYMPHOCYTES % 39.8 % (20.0-50.0); MEAN PLATELET VOLUME 11.1 fl (7.4-10.4); MONOCYTES % 5.9 % (2.0-8.0); NEUTROPHILS % 51.3 % (40.0-76.0); PLATELET 202 x1000/uL (130-400); RED BLOOD CELL COUNT 5.25 mill/uL (4.7-6.1); RED CELL DISTRIBUTION WIDTH 14.8 % (11.6-14.6)
[2025-02-08 14:36] LABS: CREATININE 1.3 mg/dL (0.6-1.3); UREA NITROGEN BLOOD 11 mg/dL (9-23)
[2025-02-08 15:58] VITALS: BP 165/102; PULSE 72; RESP 18; TEMP 36.3; O2SAT 100
== END 2025-02-08 16:00 | disposition home or self-care (01) ==
LOC: ER 13:22
DX: M79.89 Other specified soft tissue disorders (principal); I10 Essential (primary) hypertension; E11.9 Type 2 diabetes mellitus without complications; Z79.899 Other long term (current) drug therapy; Z86.73 Personal history of transient ischemic attack (TIA), and cerebral infarction without residual deficits; Z79.82 Long term (current) use of aspirin
CPT/HCPCS: 36415; 71045; 80048; 85025; 93971; 99284